=== PATIENT | female | born 1980 | race Caucasian/White ===

== ENCOUNTER 2018-10-02 19:57 | Emergency (ER) | payer OTHER ==
[~2018-10-02] VITALS: Ht 170.2 cm; Wt 108.9 kg
[2018-10-02 20:05] VITALS: BP 128/76
--- NOTE | 2018-10-02 20:05 | NUR ---
TO BED # 11 AMBULATORY, REPORT GIVEN TO JOHANN VILLEDA
--- NOTE | 2018-10-02 20:20 | NUR ---
37 y/o F presented to ED with c/o abdominal pain that started this at 3am. AAOx4. Has n/v/d x 1 day. epigastric area tender to touch. Per pt took immodium, was not effective. bedrails x11. notifeid. will contuinue to monitor. PMH: HTN, Diabetes, GERD, fibromyalgia NKA
[2018-10-02] MEDS ORDERED: ONDANSETRON 4 MG/2 ML VIAL IVP ONE (21:00)
[2018-10-02] MEDS ORDERED: KETOROLAC 15 MG/ML VIAL IVP ONE (21:00)
[2018-10-02] MEDS ORDERED: NACL 0.9% 1,000 ML IV ONE (21:00)
[2018-10-02] MEDS ORDERED: LOPERAMIDE 2 MG CAP PO ONE (21:50)
--- NOTE | 2018-10-02 22:50 | NUR ---
PATIENT REPORT FROM JOHANN VILLEDA, TRANSFER OF CARE AT THIS TIME.
--- NOTE | 2018-10-02 23:00 | NUR ---
PATIENT RESTING AT THIS TIME; NO SIGNS OF DISTRESS.
[2018-10-02 23:24] VITALS: BP 119/82
--- NOTE | 2018-10-02 23:24 | NUR ---
Patient discharged with v/s stable. Written and verbal after care instructions given and explained. Patient alert, oriented and verbalized understanding of instructions. Ambulatory with steady gait. All questions addressed prior to discharge. ID band removed. Patient advised to follow up with PMD. Rx of IMODIUM A-D 2MG AND ZOFRAN 4MG given. Patient educated on indication of medication including possible reaction and side effects. Opportunity to ask questions provided and answered.
== END 2018-10-02 23:24 | disposition home or self-care (01) ==
LOC: MED 19:57
DX: T62.91XA Toxic effect of unspecified noxious substance eaten as food, accidental (unintentional), initial encounter (principal); E11.9 Type 2 diabetes mellitus without complications; K21.9 Gastro-esophageal reflux disease without esophagitis; I10 Essential (primary) hypertension; Y92.89 Other specified places as the place of occurrence of the external cause
CPT/HCPCS: 96361; 96374; 96375; 99283; J1885; J2405; J7030